=== PATIENT | male | born 1985 | race Caucasian/White ===

== ENCOUNTER 2021-11-16 07:44 | Emergency (ER) | payer SELFPAY ==
[2021-11-16 07:53] VITALS: BP 133/90; PULSE 72; RESP 18; TEMP 36.6; O2SAT 96; BMI 30.3
[2021-11-16 07:58] VITALS: BP 133/90; PULSE 63; RESP 15; O2SAT 97
--- NOTE | 2021-11-16 07:58 | XRR_ITS ---
PROCEDURE INFORMATION: Exam: XR Chest Exam date and time: 11/16/2021 7:58 AM Age: 35 years old Clinical indication: Cough and dyspnea; Additional info: Dyspnea/cough TECHNIQUE: Imaging protocol: XR of the chest. Views: 1 view. COMPARISON: No relevant prior studies available. FINDINGS: Lungs: Unremarkable. No consolidation. Pleural spaces: Unremarkable. No pleural effusion. No pneumothorax. Heart/Mediastinum: Unremarkable. No cardiomegaly. Bones/joints: Unremarkable. XR/XR chest 1V portable [id number] IMPRESSION: No acute findings.
--- NOTE | 2021-11-16 07:58 | ECG_ITS ---
[facility] Test Date: 2021-11-16 Pat Name: Boris Díaz Department: Room: Gender: Male Joint Terminal Attack Controller: : 1985 Requested By: Tray Izquierdo Order Number: [id number] Teresa Valerio MD: Cristina Miranda M.D. Measurements Intervals [place] Rate: 67 P: 48 CO: 172 QRS: 28 QRSD: 102 T: 61 QT: 376 QTc: 397 Interpretive Statements SINUS RHYTHM POSSIBLE RIGHT VENTRICULAR CONDUCTION DELAY [RSR (QR) IN V1/V2] No previous ECG available for comparison Electronically Signed On 11-17-2021 5:40:32 SUBSTATION TECHNICIAN by Cristina Miranda M.D. [email or web address].Giveterpatient's choice medical center of smith countyAdynxxfulton county health center.[employer]/store/OM/[id number]/[id number]
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
[2021-11-16 08:13] LABS: Basophils # 0.1 10^3/uL (0.0-0.1); Basophils % 0.9 %; Eosinophils # 0.2 10^3/uL (0.0-0.8); Eosinophils % 2.3 %; Hematocrit 51.6 % (42.0-52.0); Hemoglobin 16.8 g/dL (11.7-16.6); Lymphocytes # 1.6 10^3/uL (0.8-4.8); Lymphocytes % 15.9 %; Mean Corpuscular HGB Conc 32.6 g/dL (30.0-36.0); Mean Corpuscular Hemoglobin 28.5 pg (28.0-34.0); Mean Corpuscular Volume 87.6 fl (80-94); Mean Platelet Volume 9.2 fL (7.4-10.4); Monocytes # 0.8 10^3/uL (0.2-0.9); Monocytes % 7.8 %; Neutrophils # 7.46 10^3/uL (1.8-7.7); Neutrophils % 72.9 %; Nucleated Red Blood Cells % 0 %; Platelet Count 282 10^3/cmm (130-400); Red Blood Count 5.89 10^6/uL (4.1-5.3); Red Cell Distribution Width 12.3 % (12.1-15.1); White Blood Count 10.2 10^3/uL (4.0-10.0)
[2021-11-16] MEDS: lactated ringers 1,000 ML 999 ML IV ×2 (08:20→09:03)
[2021-11-16] MEDS: ketorolac 30 mg/mL INJ IVP (08:20)
[2021-11-16 08:28] VITALS: BP 133/90; PULSE 64; RESP 14; O2SAT 98
[2021-11-16 08:30] LABS: Alanine Aminotransferase 30 U/L (0-41); Albumin Level 5.1 g/dL (3.5-5.2); Alkaline Phosphatase 76 IU/L (40-130); Aspartate Amino Transferase 24 U/L (0-40); Blood Urea Nitrogen 16 mg/dL (6-20); Calcium 8.8 mg/dL (8.5-10.5); Carbon Dioxide 25 mmol/L (22-29); Chloride 99 mmol/L (98-107); Globulin 2.3 g/dL (1.3-4.6); Glomerular Filtration Rate 95.5 mL/min (90-130); Glucose 98 mg/dL (65-115); Osmolality Calculated 283 mOsm/kg (285-295); Sodium 136 mmol/L (136-145); Total Bilirubin 0.8 mg/dL (0.15-1.2); Total Protein 7.4 g/dL (6.6-8.7)
[2021-11-16 08:34] LABS: Anion Gap 16.2 (5-19); Potassium 4.2 mmol/L (3.5-5.1)
[2021-11-16 08:59] LABS: Add Urine Microscopic? NO; Charge for UA Resulting for Rev
[2021-11-16 09:14] LABS: Bilirubin Urine 1+ (Negative); Blood Urine Neg (Negative); Glucose Urine UA Norm (Normal); Ketones Urine 2+ (Negative); Leukocyte Esterase Urine Negative (Negative); Nitrate Urine Negative (Negative); Protein Urine Neg (Negative); Urine Appearance Clear (CLEAR); Urine Color Yellow (Yellow); Urobilinogen Urine Norm (Negative); pH Urine 5 (5-7)
[2021-11-16 09:44] VITALS: PULSE 77; RESP 12; O2SAT 98
[2021-11-16] MEDS: hyDROXYzine 25 mg Capsule PO (10:02)
[2021-11-16 10:38] VITALS: BP 133/90; PULSE 86; RESP 19; O2SAT 100
== END 2021-11-16 10:41 | disposition home or self-care (01) ==
PROVIDERS: Emergency Provider Family Medicine
DX: R10.13 Epigastric pain (principal); F17.210 Nicotine dependence, cigarettes, uncomplicated
CPT/HCPCS: 71045; 80053; 81003; 85025; 93005; 96361; 96374; 99284; J1885

== ENCOUNTER 2024-05-12 16:45 | Emergency (ER) | payer SELFPAY ==
[2024-05-12 16:50] VITALS: BP 145/96; PULSE 79; RESP 16; TEMP 36.5; O2SAT 97; BMI 31.6
--- NOTE | 2024-05-12 16:56 | ECG_ITS ---
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 Measurements Intervals [place] Rate: 82 P: 39 MS: 176 QRS: 18 QRSD: 87 T: 50 QT: 353 QTc: 415 Interpretive Statements SINUS RHYTHM Compared to ECG 11/16/2021 08:13:03 No significant changes Electronically Signed On 05-12-2024 20:38:15 CDT by Uday Valdovinos M.D. [email or web address] Plantãomerit health madisonAppDisco Inc.[facility].[employer]/store/OM/[id number]/ecg/[id number]
--- NOTE | 2024-05-12 17:07 | PC.NURSE ---
this nurse spoke to ARTIE Zelaya with poison control at and informed her of pts reported intake of rat poison, meth, ibuprofen and pain pills. Nathalie said to do an EKG and get baseline labs, tox labs, a magnesium level and coags. she said with pt not knowing which rat poison and pain pills he took that it could present as a variety of different things. she also stated that pts story doesn't add up with the timing of when he took the meds and the symptoms he's having . this nurse informed dr thomson of what she said. Nathalie stated she would fax some information to the hospital as well.
[2024-05-12 17:24] LABS: Basophils # 0.1 10^3/uL (0.0-0.1); Basophils % 0.5 %; Eosinophils # 0.2 10^3/uL (0.0-0.8); Eosinophils % 1.8 %; Hematocrit 49.1 % (37-53); Lymphocytes # 1.2 10^3/uL (0.8-4.8); Lymphocytes % 11.4 %; Mean Corpuscular HGB Conc 33.2 g/dL (30-55); Mean Corpuscular Hemoglobin 29.3 pg (27-33); Mean Corpuscular Volume 88.3 fl (82-101); Mean Platelet Volume 8.9 fL (7.4-10.4); Monocytes # 0.7 10^3/uL (0.2-0.9); Monocytes % 6.6 %; Neutrophils # 8.27 10^3/uL (1.8-7.7); Neutrophils % 79.3 %; Nucleated Red Blood Cells % 0 %; Platelet Count 262 10^3/cmm (157-399); Red Blood Count 5.56 10^6/uL (3.85-5.65); Red Cell Distribution Width 12.9 % (12.1-15.1); White Blood Count 10.43 10^3/uL (3.29-11.43)
[2024-05-12 17:28] LABS: Bilirubin Urine Negative (Negative); Blood Urine Negative (Negative); Glucose Urine UA Negative (Normal); Ketones Urine Trace (Negative); Leukocyte Esterase Urine Negative (Negative); Nitrate Urine Negative (Negative); Protein Urine 1+ (Negative); Specific Gravity, Urine 1.029 (1.005-1.030); Urine Appearance Clear (CLEAR); Urine Color Yellow (Yellow)
[2024-05-12 17:33] LABS: Bacteria Urine None Seen /hpf; Hyaline Casts Urine 11.97 /lpf; RBC Urine 0-2 /hpf (0-2); Squamous Epithelial Cell Urine 0-5 /hpf (0-5)
[2024-05-12 17:35] LABS: Amphetamines Screen Urine Positive (Negative); Barbiturates Screen Urine Negative (Negative); Benzodiazepines Screen Urine Negative (Negative); Cocaine Screen Urine Negative (Negative); Opiate Screen Urine Negative (Negative); PCP Screen Urine Negative (Negative); THC Screen Urine Negative (Negative)
[2024-05-12 17:42] LABS: UA Slide Review UA Slide Review Perf
[2024-05-12 17:43] LABS: Alanine Aminotransferase 31 U/L (0-41); Albumin Level 4.5 g/dL (3.5-5.2); Alkaline Phosphatase 66 U/L (40-130); Aspartate Amino Transferase 22 U/L (0-40); Blood Urea Nitrogen 12 mg/dL (6-20); Calcium 9.2 mg/dL (8.5-10.5); Carbon Dioxide 25 mmol/L (22-29); Chloride 103 mmol/L (98-107); Glomerular Filtration Rate 93.9 mL/min (90-130); Glucose 113 mg/dL (65-115); Osmolality Calculated 289 mOsm/kg (285-295); Sodium 139 mmol/L (136-145); Total Bilirubin 0.5 mg/dL (0.15-1.2); Total Protein 7.5 g/dL (6.6-8.7)
[2024-05-12 17:43] LABS: Add Urine Culture? No; Mucus Urine 3+ /hpf
[2024-05-12 17:44] LABS: INR 0.91 (0.8-1.2)
[2024-05-12 17:45] LABS: Partial Thromboplastin Time 28.1 SECONDS (23.9-36.7)
[2024-05-12 17:46] LABS: Acetaminophen < 5.0 ug/mL (10-30); Alcohol Level < 10 mg/dL (0-10); Salicylate < 0.3 mg/dL (3-10)
--- NOTE | 2024-05-12 18:02 | W.ED.OVERDOS ---
HPI - Overdose General: Chief Complaint: Overdose Stated Complaint: ate rat posion Time Seen by Provider: 05/12/24 16:57 History of Present Illness: 38-year-old man who presents emergency room with police after he had been arrested today. He had told him once he was in correction that he had taken some rat poison, pain pills, ibuprofen and some methamphetamine. He says he just wants to now. No idea how many he took or what he actually took. Currently he is vitals are stable. He has had no vomiting. No altered mental status. No focal motor deficits. Related Data Allergies Allergy/AdvReac Type Severity Reaction Status Date / Time No Known Allergies Allergy Verified 11/16/21 07:53 Review of Systems Narrative: Constitutional symptoms: Negative except as documented in HPI. Skin symptoms: Negative except as documented in HPI. Eye symptoms: Negative except as documented in HPI. ENMT symptoms: Negative except as documented in HPI. Respiratory symptoms: Negative except as documented in HPI. Cardiovascular symptoms: Negative except as documented in HPI. Gastrointestinal symptoms: Negative except as documented in HPI. Genitourinary symptoms: Negative except as documented in HPI. Musculoskeletal symptoms: Negative except as documented in HPI. Neurologic symptoms: Negative except as documented in HPI. Psychiatric symptoms: Negative except as documented in HPI. Endocrine symptoms: Negative except as documented in HPI. [facility] ED PFSH: Medical History (Updated 05/12/24 @ 19:01 by Heather Rossi MD) No significant active problems Surgical History (Updated 11/16/21 @ 08:02 by Tray Swan DO) No significant past surgical history Social History (Updated 11/16/21 @ 08:02 by Tray Swan DO) Smoking and tobacco/nicotine status: current every day tobacco/nicotine user Alcohol intake: current Substance/Drug Use: former Date of last use: Former use of marijuana and methamphetamine Physical Exam Narrative: EXAM NARRATIVE: General: Alert, no acute distress. Skin: Warm, dry. Head: Normocephalic, atraumatic. Neck: Supple, trachea midline. Eye: Extraocular movements are intact. Ears, nose, mouth and throat: mucosa moist. Cardiovascular: Regular, Normal peripheral perfusion. Respiratory: Lungs are clear to auscultation, respirations are non-labored, breath sounds are equal, Symmetrical chest wall expansion. Gastrointestinal: Soft, Nontender, Non distended Musculoskeletal: Normal ROM, no deformity. Neurological: Alert and oriented, No focal neurological deficit observed. Psychiatric: Cooperative, depressed, suicidal ideations Course Vital Signs: Vital signs: Vital Signs Temperature 97.7 F 05/12/24 16:50 Pulse Rate 70 05/12/24 18:40 Respiratory Rate 16 05/12/24 18:40 Blood Pressure 150/124 05/12/24 18:40 Pulse Oximetry 98 05/12/24 18:40 Oxygen Delivery Me thod Room Air 05/12/24 18:40 MDM - Overdose Medical Decision Making Differential diagnosis: Patient with reported depression and suicidal ideation. concerns for infection, alcohol intoxication, cardiac issues or other medical problems prior to psychiatric admission. Workup: labwork, ekg ordered to evaluate the pathologies and to clear the patient medically prior to psychiatric admission Consultation: Poison control was called immediately upon arrival. In addition to regular labs they recommend coags. These are normal. Given the timeframe that was given likely he did not take any warfarin containing rat poison. All the rest of his labs are normal other than amphetamine. Lab Review: Laboratory results were reviewed and interpreted by myself the emergency room physician. Lab review: - Medically cleared. - EKG shows no ischemic changes. - Blood alcohol level is negative, -Tylenol and salicylate levels are negative. - Drug screen is positive for methamphetamine - No signs of infection, urinalysis clear and white count is not elevated - No anemia. - BUN and creatinine are within normal limits. ?INR is normal. Assessment and plan: Depression Suicidal ideation Intentional drug ingestion -Patient is medically clear. I have talked to poison control again and given his normal vitals and normal lab work they feel he is safe to go back as well to. As far as his suicidal ideations, the correction has provisions for patients who are having suicidal thoughts. - All lab work was reviewed and interpreted personally by myself, the ER physician - Evaluation and treatment of this problem were appropriate in the emergency setting Lab Data 05/12/24 17:17 05/12/24 17:17 Laboratory Results WBC 10.43 10^3/uL (3.29-11.43) 05/12/24 17:17 RBC 5.56 10^6/uL (3.85-5.65) 05/12/24 17:17 Hgb 16.30 g/dL (11.27-16.99) 05/12/24 17:17 Hct 49.1 % (37-53) 05/12/24 17:17 MCV 88.3 fl (82-101) 05/12/24 17:17 MCH 29.3 pg (27-33) 05/12/24 17:17 MCHC 33.2 g/dL (30-55) 05/12/24 17:17 RDW 12.9 % (12.1-15.1) 05/12/24 17:17 Plt Count 262 10^3/cmm (157-399) 05/12/24 17:17 MPV 8.9 fL (7.4-10.4) 05/12/24 17:17 Neut % (Auto) 79.3 % 05/12/24 17:17 Lymph % (Auto) 11.4 % 05/12/24 17:17 [place] % (Auto) 6.6 % 05/12/24 17:17 Eos % (Auto) 1.8 % 05/12/24 17:17 Baso % (Auto) 0.5 % 05/12/24 17:17 Neut # (Auto) 8.27 10^3/uL (1.8-7.7) H 05/12/24 17:17 Lymph # (Auto) 1.2 10^3/uL (0.8-4.8) 05/12/24 17:17 [place] # (Auto) 0.7 10^3/uL (0.2-0.9) 05/12/24 17:17 Eos # (Auto) 0.2 10^3/uL (0.0-0.8) 05/12/24 17:17 Baso # (Auto) 0.1 10^3/uL (0.0-0.1) 05/12/24 17:17 Nucleated RBC % (auto) 0 % 05/12/24 17:17 Nucleated RBCs # 0.0 /100WBC 05/12/24 17:17 PT 12.50 SECONDS (12.1-14.9) 05/12/24 17:17 INR 0.91 (0.8-1.2) 05/12/24 17:17 APTT 28.1 SECONDS (23.9-36.7) 05/12/24 17:17 Sodium 139 mmol/L (136-145) 05/12/24 17:17 Potassium 4.0 mmol/L (3.5-5.1) 05/12/24 17:17 Chloride 103 mmol/L (98-107) 05/12/24 17:17 Carbon Dioxide 25 mmol/L (22-29) 05/12/24 17:17 Anion Gap 15.0 (5-19) 05/12/24 17:17 BUN 12 mg/dL (6-20) 05/12/24 17:17 Creatinine 0.9 mg/dL (0.7-1.2) 05/12/24 17:17 GFR Calculation 93.9 mL/min (90-130) 05/12/24 17:17 Glucose 113 mg/dL (65-115) 05/12/24 17:17 Calculated Osmolality 289 mOsm/kg (285-295) 05/12/24 17:17 Lactic Acid 1.0 mmol/L (0.5-2.2) 05/12/24 17:17 Calcium 9.2 mg/dL (8.5-10.5) 05/12/24 17:17 Total Bilirubin 0.5 mg/dL (0.15-1.2) 05/12/24 17:17 AST 22 U/L (0-40) 05/12/24 17:17 ALT 31 U/L (0-41) 05/12/24 17:17 Alkaline Phosphatase 66 U/L (40-130) 05/12/24 17:17 Total Protein 7.5 g/dL (6.6-8.7) 05/12/24 17:17 Albumin 4.5 g/dL (3.5-5.2) 05/12/24 17:17 Globulin 3.0 g/dL (1.3-4.6) 05/12/24 17:17 Urine Color Yellow (Yellow) 05/12/24 17:19 Urine Appearance Clear (CLEAR) 05/12/24 17:19 Urine pH 6.0 (5-7) 05/12/24 17:19 Ur Specific [place] 1.029 (1.005-1.030) 05/12/24 17:19 Urine Protein 1+ (Negative) A 05/12/24 17:19 Urine Glucose (UA) Negative (Normal) 05/12/24 17:19 Urine Ketones Trace (Negative) 05/12/24 17:19 Urine Blood Negative (Negative) 05/12/24 17:19 Urine Nitrate Negative (Negative) 05/12/24 17:19 Urine Bilirubin Negative (Negative) 05/12/24 17:19 Urine Urobilinogen 1.0 mg/dL (Negative) 05/12/24 17:19 Ur Leukocyte Esterase Negative (Negative) 05/12/24 17:19 Urine RBC 0-2 /hpf (0-2) 05/12/24 17:19 Urine WBC 6-10 /hpf (0-5) 05/12/24 17:19 Ur Squamous Epith Cells 0-5 /hpf (0-5) 05/12/24 17:19 Amorphous Sediment Not Reportable 05/12/24 17:19 Urine Bacteria None seen /hpf (NONE) 05/12/24 17:19 Hyaline Casts 11.97 /lpf 05/12/24 17:19 Urine Mucus 3+ /hpf 05/12/24 17:19 Salicylates < 0.3 mg/dL (3-10) L 05/12/24 17:17 Urine Opiates Screen Negative ng/mL (Negative) 05/12/24 17:19 Acetaminophen < 5.0 ug/mL (10-30) L 05/12/24 17:17 Ur Barbiturates Screen Negative ng/mL (Negative) 05/12/24 17:19 Ur Phencyclidine Scrn Negative ng/mL (Negative) 05/12/24 17:19 Ur Amphetamines Screen Positive ng/mL (Negative) H 05/12/24 17:19 U Benzodiazepines Scrn Negative ng/mL (Negative) 05/12/24 17:19 Urine Cocaine Screen Negative ng/mL (Negative) 05/12/24 17:19 U Marijuana (THC) Screen Negative ng/mL (Negative) 05/12/24 17:19 Ethyl Alcohol < 10 mg/dL (0-10) 05/12/24 17:17 SARS-CoV-2 Ag (Rapid) Negative (Negative) 05/12/24 17:30 No radiology studies performed this visit Discharge Plan Discharge Patient Disposition: Home Clinical Impression: Suicide attempt by multiple drug overdose Condition: Stable Discharge Orders: Discharge ED (Routine); Ordered 05/12/24 Ordered By: Heather Rossi Discharge Diet: Usual diet Discharge Activity: Increase activity as tolerated Patient Instructions: Depression (ED) Activity Restrictions/Additional Instructions: Thank you for choosing [facility] for your healthcare needs today. Please realize this is an emergency room and that we are providing you with a medical screening exam and this may not be complete and all inclusive of all the testing and or work up that you may need to determine your ailment or severity of your illness. You have been screened and evaluated and felt safe for discharge. Health conditions do change or evolve sometimes and as such it is important that you follow up with your Primary Doctor to be re checked, 3-5 days is a general good time frame for follow up. You are always welcome to return to the ED for re assessment if your symptoms are worsening or you have new concerns Coding Level of Care Code ED Assistant Prosecuting Attorney for Ariella Rojas
[2024-05-12 18:15] LABS: SARS Covid-2 Antigen Negative (Negative)
[2024-05-12 18:40] VITALS: BP 150/124; PULSE 70; RESP 16; O2SAT 98
--- NOTE | 2024-05-12 18:41 | PC.NURSE ---
officer with pt informed this nurse pt was saying he was having a panic attack. this nurse checked on pt who was restless and stated he couldn't breathe and his stomach hurt. pt O2 sats 98-100% on room air at this time. pt stated he wanted something to drink. this nurse informed provider, provider said pt could have water and ordered meds. pt was given a cup of water and laid back in bed. this nurse went to start an IV on pt to administer ordered meds and pt refused. pt stated i don't want meds, i just want to . let me in this bed. this nurse informed provider.
[2024-05-12 19:15] VITALS: BP 161/90; PULSE 88; RESP 16; TEMP 36.5; O2SAT 98
== END 2024-05-12 19:16 | disposition home or self-care (01) ==
PROVIDERS: Emergency Provider Emergency Medicine
DX: T40.2X2A Poisoning by other opioids, intentional self-harm, initial encounter (principal); T39.312A Poisoning by propionic acid derivatives, intentional self-harm, initial encounter; T43.622A Poisoning by amphetamines, intentional self-harm, initial encounter; Z72.0 Tobacco use; Z11.52 Encounter for screening for COVID-19
CPT/HCPCS: 36415; 80053; 80306; 80307; 81001; 83605; 85025; 85610; 85730; 87426; 93005; 99284

== ENCOUNTER 2025-01-14 00:46 | Emergency (ER) | payer SELFPAY ==
[2025-01-14] VITALS (7 sets, daily range): BP systolic 121–133; BP diastolic 64–98; PULSE 57–83; RESP 15–20; TEMP 36.6; O2SAT 92–96; BMI 31.1
--- NOTE | 2025-01-14 00:42 | XRR_ITS ---
PROCEDURE INFORMATION: Exam: XR Chest Exam date and time: 01/14/2025 12:44 AM Age: 39 years old Clinical indication: Left-sided; C/O left sided chest pain TECHNIQUE: Imaging protocol: Radiologic exam of the chest. Views: 1 view. COMPARISON: CR XR chest 1V portable [id number] 11/16/2021 8:01 AM FINDINGS: Lungs: Unremarkable. No consolidation. Pleural spaces: Unremarkable. No pleural effusion. No pneumothorax. Heart/Mediastinum: Unremarkable. No cardiomegaly. Bones/joints: Unremarkable. XR/XR chest 1V portable [id number] IMPRESSION: No visualized acute cardiopulmonary process.
--- NOTE | 2025-01-14 00:43 | ECG_ITS ---
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
[2025-01-14 00:56] LABS: Basophils # 0.1 10^3/uL (0.0-0.1); Basophils % 0.5 %; Eosinophils # 0.2 10^3/uL (0.0-0.8); Eosinophils % 1.6 %; Hematocrit 48.7 % (37-53); Lymphocytes # 2.1 10^3/uL (0.8-4.8); Lymphocytes % 16.8 %; Mean Corpuscular HGB Conc 32.6 g/dL (30-55); Mean Corpuscular Volume 88.9 fl (82-101); Monocytes # 0.9 10^3/uL (0.2-0.9); Monocytes % 7.7 %; Neutrophils # 8.91 10^3/uL (1.8-7.7); Neutrophils % 73.1 %; Nucleated Red Blood Cells % 0 %; Platelet Count 295 10^3/cmm (157-399); Red Blood Count 5.48 10^6/uL (3.85-5.65)
[2025-01-14 01:12] LABS: Troponin(5th) Baseline 16 ng/L (0-15)
[2025-01-14 01:13] LABS: Alanine Aminotransferase 25 U/L (0-41); Albumin Level 4.6 g/dL (3.5-5.2); Alkaline Phosphatase 76 U/L (40-130); Anion Gap 15.4 (5-19); Aspartate Amino Transferase 20 U/L (0-40); Blood Urea Nitrogen 10 mg/dL (6-20); Calcium 9.3 mg/dL (8.5-10.5); Carbon Dioxide 26 mmol/L (22-29); Chloride 101 mmol/L (98-107); Creatinine Clr Calc Pharmacy 111.4778; Globulin 2.9 g/dL (1.3-4.6); Glomerular Filtration Rate 74.1 mL/min (90-130); Glucose 104 mg/dL (65-115); Osmolality Calculated 285 mOsm/kg (285-295); Potassium 4.4 mmol/L (3.5-5.1); Sodium 138 mmol/L (136-145); Total Bilirubin 0.6 mg/dL (0.15-1.2); Total Protein 7.5 g/dL (6.6-8.7)
[2025-01-14] MEDS: sodium chloride 0.9% 1,000 ML 999 ML IV (01:17)
[2025-01-14] MEDS: ketorolac 30 mg/mL INJ 15 MG IVP (01:17)
--- NOTE | 2025-01-14 01:32 | ED_ITS ---
HPI - Chest Pain 2 General: Chief Complaint: Chest Pain Stated Complaint: cp History of Present Illness: Patient is well-appearing 39-year-old male transported from prison seen for chest pain. He describes the pain as sharp and located to the left anterior chest and also to spot on the right anterior chest in the anterior axillary line. He states the pain is worse with deep inspiration and better with rest. Pain started roughly 1 hour after arriving at prison and has been persistent for well over 6 hours. He has not had anything for the pain. He states that he has had similar pain in the past. He has no personal history of cardiac issues. He denies recent sickness, fever, cough, and has no other acute complaints. Related Data Allergies Allergy/AdvReac Type Severity Reaction Status Date / Time No Known Allergies Allergy Verified 11/16/21 07:53 [facility] ED 2 PFS: Medical History (Updated 01/14/25 @ 01:32 by Dylan Kellogg MD) No significant active problems Surgical History (Updated 11/16/21 @ 08:02 by Tray Swan DO) No significant past surgical history Social History (Updated 11/16/21 @ 08:02 by Tray Swan DO) Smoking and tobacco/nicotine status: current every day tobacco/nicotine user Alcohol intake: current Substance/Drug Use: former Date of last use: Former use of marijuana and methamphetamine Physical Exam 2 Const: COMMON NORMALS: no acute distress, patient oriented x3 and alert HENMT: COMMON NORMALS: normocephalic and atraumatic HEAD & SCALP: n ormocephalic and atraumatic Eye: COMMON NORMALS: Equal, round and reactive pupils present, EOMs intact bilaterally and no scleral icterus PUPIL: Yes Equal, round and reactive pupils present Chest: OTHER: Chest pain is reproducible with deep inspiration and palpation of the left anterior chest wall as well as on the right anterior chest wall in the anterior axillary line overlying rib 7. No obvious deformity, swelling, redness, or bruising of the area. Resp: COMMON NORMALS: normal respiratory effort and No retractions Cardio: COMMON NORMALS: regular rate, regular rhythm and No murmurs present (Cardio) RATE: regular rate RHYTHM: regular rhythm GI: COMMON NORMALS: Normal to inspection, nondistended, normoactive bowel sounds present, Soft to palpation and non-tender PALPATION: Yes Soft to palpation Neuro: COMMON NORMALS: patient oriented x3 SENSORIUM/ORIENTATION: Yes alert Skin: COMMON NORMALS: no rashes or lesions noted GENERAL SKIN EXAM: no rashes or lesions noted Course 2 Vital Signs: Vital signs: Vital Signs Temperature 97.9 F 01/14/25 00:42 Pulse Rate 66 01/14/25 01:03 Respiratory Rate 20 H 01/14/25 01:03 Blood Pressure 133/98 01/14/25 01:03 Pulse Oximetry 95 01/14/25 01:03 Oxygen Delivery Me thod Room Air 01/14/25 00:42 [facility] - Chest Pain Medical Decision Making In summary, patient is a well-appearing 3-year-old male seen for chest pain. Pain pattern is atypical for ACS. Chest x-ray, EKG, troponin are all stable. Remainder of workup is noncontributory. I do not suspect ACS, PE, pneumonia, or any other emergent process warranting further, this time. He will be discharged back to prison in stable condition. Lab Data 01/14/25 00:48 01/14/25 00:48 Radiology Impressions Chest X-Ray 01/14/25 00:42 IMPRESSION: No visualized acute cardiopulmonary process. Laboratory Results WBC 12.20 10^3/uL (3.29-11.43) H 01/14/25 00:48 RBC 5.48 10^6/uL (3.85-5.65) 01/14/25 00:48 Hgb 15.90 g/dL (11.27-16.99) 01/14/25 00:48 Hct 48.7 % (37-53) 01/14/25 00:48 MCV 88.9 fl (82-101) 01/14/25 00:48 MCH 29.0 pg (27-33) 01/14/25 00:48 MCHC 32.6 g/dL (30-55) 01/14/25 00:48 RDW 13.0 % (12.1-15.1) 01/14/25 00:48 Plt Count 295 10^3/cmm (157-399) 01/14/25 00:48 MPV 9.0 fL (7.4-10.4) 01/14/25 00:48 Neut % (Auto) 73.1 % 01/14/25 00:48 Lymph % (Auto) 16.8 % 01/14/25 00:48 [place] % (Auto) 7.7 % 01/14/25 00:48 Eos % (Auto) 1.6 % 01/14/25 00:48 Baso % (Auto) 0.5 % 01/14/25 00:48 Neut # (Auto) 8.91 10^3/uL (1.8-7.7) H 01/14/25 00:48 Lymph # (Auto) 2.1 10^3/uL (0.8-4.8) 01/14/25 00:48 [place] # (Auto) 0.9 10^3/uL (0.2-0.9) 01/14/25 00:48 Eos # (Auto) 0.2 10^3/uL (0.0-0.8) 01/14/25 00:48 Baso # (Auto) 0.1 10^3/uL (0.0-0.1) 01/14/25 00:48 Nucleated RBC % (auto) 0 % 01/14/25 00:48 Nucleated RBCs # 0.0 /100WBC 01/14/25 00:48 Sodium 138 mmol/L (136-145) 01/14/25 00:48 Potassium 4.4 mmol/L (3.5-5.1) 01/14/25 00:48 Chloride 101 mmol/L (98-107) 01/14/25 00:48 Carbon Dioxide 26 mmol/L (22-29) 01/14/25 00:48 Anion Gap 15.4 (5-19) 01/14/25 00:48 BUN 10 mg/dL (6-20) 01/14/25 00:48 Creatinine 1.1 mg/dL (0.7-1.2) 01/14/25 00:48 GFR Calculation 74.1 mL/min (90-130) L 01/14/25 00:48 Glucose 104 mg/dL (65-115) 01/14/25 00:48 Calculated Osmolality 285 mOsm/kg (285-295) 01/14/25 00:48 Calcium 9.3 mg/dL (8.5-10.5) 01/14/25 00:48 Total Bilirubin 0.6 mg/dL (0.15-1.2) 01/14/25 00:48 AST 20 U/L (0-40) 01/14/25 00:48 ALT 25 U/L (0-41) 01/14/25 00:48 Alkaline Phosphatase 76 U/L (40-130) 01/14/25 00:48 Troponin T Baseline 16 ng/L (0-15) H 01/14/25 00:48 Total Protein 7.5 g/dL (6.6-8.7) 01/14/25 00:48 Albumin 4.6 g/dL (3.5-5.2) 01/14/25 00:48 Globulin 2.9 g/dL (1.3-4.6) 01/14/25 00:48 All radiology interpretation(s) finalized by discharge EKG Data EKG 1: Interpretation: Time?42?sinus rhythm, rate of 80, no ST segment elevation or depression, no T wave inversion, intervals within normal limits. QTc = 396 Discharge Plan Discharge Patient Disposition: Home Clinical Impression: Chest pain in adult Condition: Stable Discharge Orders: Discharge ED (Routine); Ordered 01/14/25 Ordered By: Dylan Kellogg Discharge Diet: Usual diet Discharge Activity: Resume usual activity Patient Instructions: Chest Pain - Noncardiac Activity Restrictions/Additional Instructions: Your EKG, chest x-ray, and blood work are all reassuring with no evidence of heart attack or other emergency requiring hospitalization or further workup. Please take ibuprofen as needed for pain and follow-up with your primary doctor generally with Print Language: Cypriot Coding Level of Care Code ED Cardiovascular Lab Director for Ariella Rojas
== END 2025-01-14 02:10 | disposition home or self-care (01) ==
PROVIDERS: Emergency Provider Student in an Organized Health Care Education/Training Program
DX: R07.9 Chest pain, unspecified (principal); Z72.0 Tobacco use
CPT/HCPCS: 71045; 80053; 84484; 85025; 93005; 96360; 99285; J1885; J7030

== ENCOUNTER 2025-05-05 17:42 | Emergency (ER) | payer SELFPAY ==
[2025-05-05 17:50] VITALS: BP 122/90; PULSE 73; TEMP 37.1; O2SAT 96
--- NOTE | 2025-05-05 17:56 | USR_ITS ---
PROCEDURE INFORMATION: Exam: US Scrotum Exam date and time: 05/05/2025 6:30 PM Age: 39 years old Clinical indication: Scrotum pain; Patient is a prisoner with police escort. He is a poor historian, does not answer how long he has noticed the left scrotal mass; Additional info: Mass on left testes TECHNIQUE: Imaging protocol: Real-time ultrasound of the scrotum and contents with color Doppler and image documentation. COMPARISON: l spine FINDINGS: Right testicle: The right testicle measures 4.1 x 2.1 x 2.9 cm. There is vascular flow. Left testicle: The left testicle measures 4.4 x 2.3 x 2.5 cm. There is vascular flow. 3.1 x 2.3 x 2.1 cm left extratesticular mass which contains some peripheral vascularity, Epididymides: Right epididymis measures 3.1 x 1.6 x 1.2 cm in the left epididymis measures 3.4 x 1.2 x 1.0 cm. There is a 0.4 x 0.4 x 0.4 cm right epididymal cyst. Scrotum/soft tissues: There is a left hydrocele noted. This measures 2.1 x 1.6 x 2.8 cm. Left varicocele noted measuring 3.3 x 1.0 x 1.1 cm. US/US scrotum [id number] IMPRESSION: 1. 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 2. Left hydrocele. 3. 0.4 cm right epididymal cyst. 4. No evidence of torsion.
--- NOTE | 2025-05-05 17:57 | ED_ITS ---
HPI - Male Genitourinary 2 General: Chief complaint: Urogenital-Male Stated complaint: testicular pain Time Seen by Provider: 05/05/25 17:45 History of Present Illness: Patient is a 39-year-old gentleman without medical history, incarcerated, comes to ED with dark urine and mass on left testes. This has been worsening over the last few days. He has been incarcerated a week and a half. No new sexual partners. No fevers, no chills. Denies dysuria, hematuria, oliguria. States that the pain is in his left testes, there is a mass on his left testes, and it radiates down both legs. Associated symptoms: Deny dysuria, nausea or vomiting Related Data Previous Rx's ?Medication ?Instructions ?Recorded ibuprofen 400 mg tablet 400 mg PO Q6H PRN pain #30 t abs 05/05/25 Allergies Allergy/AdvReac Type Severity Reaction Status Date / Time No Known Allergies Allergy Verified 05/05/25 17:53 Review of Systems 2 General: Reports: 10 or more systems reviewed and unremarkable except in HPI and below Const: Denies: fever(s) or chills Eyes: Denies: change in vision or blurry vision ENMT: Denies: throat pain or mouth pain Card: Denies: chest pain or palpitations Resp: Denies: dyspnea or non-productive cough GI: Denies: abdominal pain, nausea, vomiting or change in bowel habits : Reports: testicular pain and scrotal swelling; Denies: flank pain, difficulty urinating, dysuria, change in urine stream or oliguria Musc: Denies: neck pain, back pain or extremity pain Skin/Breast: Denies: rash or pruritus Neuro: Denies: headache(s) or numbness in extremities Psych: Denies: anxiety or depression Endo: Denies: polyuria or polydipsia Jaime/Lymph: Denies: easy bruising or easy bleeding All/Imm: Denies: urticaria or tongue swelling PFSH ED 2 PFSH: Medical History (Updated 05/05/25 @ 19:40 by NYASIA Rahman) No significant active problems Surgical History (Updated 11/16/21 @ 08:02 by Tray Swan DO) No significant past surgical history Social History (Updated 11/16/21 @ 08:02 by Tray L Horstman, DO) Smoking and tobacco/nicotine status: current every day tobacco/nicotine user Alcohol intake: current Substance/Drug Use: former Date of last use: Former use of marijuana and methamphetamine Physical Exam 2 Const: COMMON NORMALS: no acute distress, average body habitus, patient oriented x3, no limitations, healthy appearing, alert and well nourished HENMT: COMMON NORMALS: normocephalic, atraumatic and hearing grossly normal bilaterally HEAD & SCALP: normocephalic and atraumatic Eye: COMMON NORMALS: Equal, round and reactive pupils present, EOMs intact bilaterally and conjunctivae normal CONJUNCTIVA: Yes conjunctivae normal P UPIL: Yes Equal, round and reactive pupils present Lymph: LYMPHATIC: no lymphadenopathy noted Chest: COMMONS NORMALS: normal inspection of the chest and normal palpation of entire chest wall Resp: COMMON NORMALS: normal respiratory effort, No retractions and clear to auscultation bilaterally AUSCULTATION: clear to auscultation bilaterally Cardio: COMMON NORMALS: regular rate and regular rhythm RATE: regular rate RHYTHM: regular rhythm GI: COMMON NORMALS: Normal to inspection, nondistended, normoactive bowel sounds present, Soft to palpation, non-tender and No hepatosplenomegaly present PALPATION: Yes Soft to palpation and Yes No hepatosplenomegaly present : COMMON NORMALS: Yes no CVA tenderness BLADDER/KIDNEY EXAM: Yes no CVA tenderness MALE GROIN/PERINEUM EXAM: No ecchymosis, No edema, No inguinal lymphadenopathy and No lacerations PENIS: normal penis and circumcised S CROTUM: Yes testes descended bilaterally, Yes Scrotal tenderness present, Yes scrotal swelling Scrotal swelling laterality: left Scrotal swelling consistent with: spermatocele (left) and Yes scrotal mass Scrotal mass laterality: left mobile, tender and cystic; not warm GENITAL IMAGES (MALE): 1. scrotal mass Back/Pelvis: COMMON NORMALS: no CVA tenderness Extremity: COMMON NORMALS: normal to inspection, full ROM and capillary refill normal GENERAL: Yes normal exam except as noted Neuro: COMMON NORMALS: patient oriented x3 SENSORIUM/ORIENTATION: Yes alert Course 2 Reevaluation(s): Reevaluation #1: Patient states improved after Toradol and Norflex Vital Signs: Vital signs: Vital Signs Temperature 98.8 F 05/05/25 17:50 Pulse Rate 73 05/05/25 17:50 Respiratory Rate 18 08/18/25 19:04 Blood Pressure 108/66 05/05/25 18:36 Pulse Oximetry 98 05/05/25 19:04 Oxygen Delivery Me thod Room Air 05/05/25 19:04 MDM - Male Medical Decision Making Patient is a 39-year-old gentleman with mass on left testicle, over the course of this week. No new sexual partners. Chlamydia, gonorrhea is pending, however low risk per patient without any new sexual partners. The mass in general felt more cystic in nature. 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 Patient will then need referral to urology. Discussed with patient. Case management referral has been made. Patient has agreed for them to call the detention for his follow-up appointment so this can be coordinated, I assume with [facility], however will defer to case management. Lab Data 05/05/25 18:13 05/05/25 18:13 Radiology Impressions Scrotum Ultrasound 05/05/25 17:56 IMPRESSION: 1. 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 2. Left hydrocele. 3. 0.4 cm right epididymal cyst. 4. No evidence of torsion. Laboratory Results WBC 9.82 10^3/uL (3.29-11.43) 05/05/25 18:13 RBC 5.34 10^6/uL (3.85-5.65) 05/05/25 18:13 Hgb 15.30 g/dL (11.27-16.99) 05/05/25 18:13 Hct 46.6 % (37-53) 05/05/25 18:13 MCV 87.3 fl (82-101) 05/05/25 18:13 MCH 28.7 pg (27-33) 05/05/25 18:13 MCHC 32.8 g/dL (30-55) 05/05/25 18:13 RDW 12.8 % (12.1-15.1) 05/05/25 18:13 Plt Count 274 10^3/cmm (157-399) 05/05/25 18:13 MPV 9.3 fL (7.4-10.4) 05/05/25 18:13 Neut % (Auto) 66.3 % 05/05/25 18:13 Lymph % (Auto) 20.1 % 05/05/25 18:13 [place] % (Auto) 7.3 % 05/05/25 18:13 Eos % (Auto) 5.1 % 05/05/25 18:13 Baso % (Auto) 0.9 % 05/05/25 18:13 Neut # (Auto) 6.51 10^3/uL (1.8-7.7) 05/05/25 18:13 Lymph # (Auto) 2.0 10^3/uL (0.8-4.8) 05/05/25 18:13 [place] # (Auto) 0.7 10^3/uL (0.2-0.9) 05/05/25 18:13 Eos # (Auto) 0.5 10^3/uL (0.0-0.8) 05/05/25 18:13 Baso # (Auto) 0.1 10^3/uL (0.0-0.1) 05/05/25 18:13 Nucleated RBC % (auto) 0 % 05/05/25 18:13 Nucleated RBCs # 0.0 /100WBC 05/05/25 18:13 Sodium 137 mmol/L (136-145) 05/05/25 18:13 Potassium 4.0 mmol/L (3.5-5.1) 05/05/25 18:13 Chloride 100 mmol/L (98-107) 05/05/25 18:13 Carbon Dioxide 26 mmol/L (22-29) 05/05/25 18:13 Anion Gap 15.0 (5-19) 05/05/25 18:13 BUN 7 mg/dL (6-20) 05/05/25 18:13 Creatinine 1.0 mg/dL (0.7-1.2) 05/05/25 18:13 GFR Calculation 82.8 mL/min (90-130) L 05/05/25 18:13 Glucose 88 mg/dL (65-115) 05/05/25 18:13 Calculated Osmolality 281 mOsm/kg (285-295) L 05/05/25 18:13 Calcium 9.0 mg/dL (8.5-10.5) 05/05/25 18:13 Total Bilirubin 0.4 mg/dL (0.15-1.2) 05/05/25 18:13 AST 18 U/L (0-40) 05/05/25 18:13 ALT 21 U/L (0-41) 05/05/25 18:13 Alkaline Phosphatase 60 U/L (40-130) 05/05/25 18:13 Total Protein 7.3 g/dL (6.6-8.7) 05/05/25 18:13 Albumin 4.4 g/dL (3.5-5.2) 05/05/25 18:13 Globulin 2.9 g/dL (1.3-4.6) 05/05/25 18:13 Urine Color Yellow (Yellow) 05/05/25 18:30 Urine Appearance Clear (CLEAR) 05/05/25 18:30 Urine pH 7.0 (5-7) 05/05/25 18:30 Ur Specific [place] 1.021 (1.005-1.030) 05/05/25 18:30 Urine Protein Negative (Negative) 05/05/25 18:30 Urine Glucose (UA) Negative (Normal) 05/05/25 18:30 Urine Ketones Trace (Negative) 05/05/25 18:30 Urine Blood Negative (Negative) 05/05/25 18:30 Urine Nitrate Negative (Negative) 05/05/25 18:30 Urine Bilirubin Negative (Negative) 05/05/25 18:30 Urine Urobilinogen 1.0 mg/dL (Negative) 05/05/25 18:30 Ur Leukocyte Esterase Negative (Negative) 05/05/25 18:30 Amorphous Sediment Not Reportable 05/05/25 18:30 All radiology interpretation(s) finalized by discharge Discharge Plan Discharge Patient Disposition: Home Clinical Impression: Adenomatoid tumor, Left hydrocele Condition: Stable Prescriptions: New ibuprofen 400 mg tablet 400 mg PO Q6H PRN (Reason: pain) Qty: 30 0RF Discharge Orders: Discharge ED (Routine); Ordered 05/05/25 Ordered By: Susan Lemos Discharge Diet: Usual diet Discharge Activity: Resume usual activity Patient Instructions: Scrotal Pain (ED), Patient Portal & Darin Instructions Activity Restrictions/Additional Instructions: You will need to follow-up with urology. I have called case management for a referral. Take ibuprofen as needed for pain. Prescription has been sent to [facility] pharmacy locally. You may utilize a jockstrap for support if it helps for pain No other findings were noted. You may follow-up with primary care Return to ED if worsening pain, fever, pain with urination Print Language: Estonian Coding Level of Care Code ED Women'S Swim Coach for Ariella Rojas
[2025-05-05 18:36] VITALS: BP 108/66
[2025-05-05 18:40] LABS: Add Urine Microscopic? NO
[2025-05-05 18:40] LABS: Hematocrit 46.6 % (37-53); Hemoglobin 15.30 g/dL (11.27-16.99); Mean Corpuscular HGB Conc 32.8 g/dL (30-55); Mean Corpuscular Hemoglobin 28.7 pg (27-33); Mean Corpuscular Volume 87.3 fl (82-101); Nucleated Red Blood Cells % 0 %; Platelet Count 274 10^3/cmm (157-399); Red Blood Count 5.34 10^6/uL (3.85-5.65); White Blood Count 9.82 10^3/uL (3.29-11.43)
[2025-05-05 18:41] LABS: Glucose Urine UA Negative (Normal); Nitrate Urine Negative (Negative); Specific Gravity, Urine 1.021 (1.005-1.030)
[2025-05-05 18:46] LABS: Charge for UA Resulting for Rev
[2025-05-05 18:58] LABS: Alanine Aminotransferase 21 U/L (0-41); Albumin Level 4.4 g/dL (3.5-5.2); Alkaline Phosphatase 60 U/L (40-130); Anion Gap 15.0 (5-19); Aspartate Amino Transferase 18 U/L (0-40); Blood Urea Nitrogen 7 mg/dL (6-20); Calcium 9.0 mg/dL (8.5-10.5); Carbon Dioxide 26 mmol/L (22-29); Chloride 100 mmol/L (98-107); Creatinine Clr Calc Pharmacy 122.6256; Globulin 2.9 g/dL (1.3-4.6); Glucose 88 mg/dL (65-115); Osmolality Calculated 281 mOsm/kg (285-295); Potassium 4.0 mmol/L (3.5-5.1); Sodium 137 mmol/L (136-145); Total Protein 7.3 g/dL (6.6-8.7)
[2025-05-05 19:04] VITALS: RESP 18; O2SAT 98
[2025-05-05] MEDS: orphenadrine 30 mg/mL Inj 2 mL 60 MG IM (19:29)
[2025-05-05 20:07] VITALS: BP 112/70; PULSE 75; RESP 18; O2SAT 99
[2025-05-05 20:21] LABS: Neisseria Gonorrhea NOT DETECTED (Negative)
--- NOTE | 2025-05-07 10:53 | DCPLANNER ---
Referral sent to [facility] urolog
== END 2025-05-05 20:11 | disposition home or self-care (01) ==
PROVIDERS: Emergency Provider Physician Assistant
DX: D29.22 Benign neoplasm of left testis (principal); N43.3 Hydrocele, unspecified; Z72.0 Tobacco use
CPT/HCPCS: 36415; 76870; 80053; 81003; 85025; 87491; 87591; 96372; 99284; J1885; J2360

== ENCOUNTER 2025-07-15 16:37 | Emergency (ER) | payer SELFPAY ==
[2025-07-15 16:44] VITALS: BP 125/95; PULSE 74; RESP 14; TEMP 36.6; O2SAT 95; BMI 30.3
--- NOTE | 2025-07-15 16:51 | USR_ITS ---
PROCEDURE INFORMATION: Exam: US Scrotum Exam date and time: 07/15/2025 5:08 PM Age: 39 years old Clinical indication: Condition or disease; Mass, lump, or swelling; Left; Additional info: L mass-enlarging TECHNIQUE: Imaging protocol: Real-time ultrasound of the scrotum and contents with color Doppler and image documentation. COMPARISON: US scrotum [id number] 05/05/2025 6:30 PM FINDINGS: Right testicle: 4.1 x 3.4 x 2.5 cm. No intratesticular mass. Normal color Doppler and arterial waveforms. No torsion. Left testicle: 4.2 x 2.3 x 2.5 cm. No intratesticular mass. Normal color Doppler and arterial waveforms. No torsion. Epididymides: No evidence of epididymitis. Scrotum/soft tissues: Re-demonstration are extratesticular mass in the left hemiscrotum measuring approximately 2.5 x 2.4 x 2.7 cm, minimal interval change in appearance to previous examination allowing for differences in technique. No internal vascularity is apparent. US/US scrotum [id number] IMPRESSION: 1. No evidence of testicular torsion, orchitis, or epididymitis. 2. Redemonstration of left hemiscrotum nonvascular extratesticular mass measuring 2.5 x 2.4 x 2.7 cm, minimal interval change.
--- NOTE | 2025-07-15 16:52 | ED_ITS ---
HPI - Male Genitourinary 2 General: Chief complaint: Urogenital-Male Stated complaint: urinated blood Time Seen by Provider: 07/15/25 16:46 Source: patient Mode of arrival: ambulatory Limitations: no limitations History of Present Illness: Patient is a 39-year-old male presents to ED today incarcerated/in police custody here for complaints of an enlarging left testicular mass and hematuria. He states he has noticed hematuria over the past several days. He was seen here back in April and diagnosed with a left testicular mass. He did follow-up with urology at [facility] in [place] but states there was a mixup with payments so was never actually seen. There is no concern for STD. He is not having any penile discharge. Denies flank pain or fevers. MD Complaint: testicle pain, testicle swelling and other (hematuria) Onset (ago): month(s) (L testicular mass x months) Duration: constant Location: left testicle Radiation: left testicle Severity: moderate Relieving factors: none Exacerbating factors: none Associated symptoms: Reports hematuria; Deny dysuria, nausea or vomiting Related Data Previous Rx's ?Medication ?Instructions ?Recorded ibuprofen 400 mg tablet 400 mg PO Q6H PRN pain #30 t abs 05/05/25 Allergies Allergy/AdvReac Type Severity Reaction Status Date / Time No Known Allergies Allergy Verified 05/05/25 17:53 Review of Systems 2 Const: Denies: fever(s), chills, body aches, fatigue or malaise Card: Denies: chest pain Resp: Denies: dyspnea GI: Denies: nausea, vomiting, diarrhea or change in bowel habits : Reports: hematuria and testicular mass; Denies: flank pain, difficulty urinating, dysuria, urinary frequency, urinary urgency, urinary dribbling, genital lesions or penile discharge Musc: Denies: neck pain, back pain, extremity pain or joint swelling Skin/Breast: Denies: rash Neuro: Denies: headache(s), numbness in extremities, weakness in extremities, sensory changes or dizziness PFSH ED 2 PFSH: Medical History No significant active problems Surgical History No significant past surgical history Social History (Reviewed 07/15/25 @ 16:55 by RYLAN Sanchez Smoking and tobacco/nicotine status: current every day tobacco/nicotine user Alcohol intake: current Substance/Drug Use: former Date of last use: Former use of marijuana and methamphetamine Physical Exam 2 Const: COMMON NORMALS: no acute distress, average body habitus, patient oriented x3, no limitations, healthy appearing, alert and well nourished G ENERAL APPEARANCE: cooperative ORIENTATION/CONSCIOUSNESS: Yes awake, Yes oriented to person, Yes oriented to place and Yes oriented to time Resp: COMMON NORMALS: normal respiratory effort and clear to auscultation bilaterally AUSCULTATION: clear to auscultation bilaterally Cardio: COMMON NORMALS: regular rate and regular rhythm RATE: regular rate RHYTHM: regular rhythm GI: COMMON NORMALS: Normal to inspection, nondistended, normoactive bowel sounds present, Soft to palpation, non-tender, No hepatosplenomegaly present and no masses INSPECTION: Yes normal to inspection PALPATION: Yes Soft to palpation and Yes No hepatosplenomegaly present : COMMON NORMALS: Yes no CVA tenderness BLADDER/KIDNEY EXAM: Yes no CVA tenderness PENIS: normal penis and circumcised MEATUS: meatus normal S CROTUM: Yes testes descended bilaterally, Yes Scrotal tenderness present, No erythematous, No ecchymosis and Yes scrotal mass Scrotal mass laterality: left TESTES: Yes testicular tenderness and Yes testicular mass Testicular mass laterality: left OTHER: urine sample provided does not appear to have any blood in it-dark yellow Back/Pelvis: COMMON NORMALS: no CVA tenderness Extremity: GENERAL: Yes normal exam except as noted Neuro: COMMON NORMALS: patient oriented x3 SENSORIUM/ORIENTATION: Yes alert, Yes oriented to person, Yes oriented to place and Yes oriented to time Course 2 Vital Signs: Vital signs: Vital Signs Temperature 97.8 F 07/15/25 16:44 Pulse Rate 72 07/15/25 17:32 Respiratory Rate 14 07/15/25 16:44 Blood Pressure 151/86 07/15/25 17:32 Pulse Oximetry 97 07/15/25 17:32 MDM - Male Medical Decision Making Patient appears in no acute distress. Vital signs are stable. He is not having any flank pain or fevers. His blood work overall is unremarkable. Kidney functions are normal. UA appears dark and concentrated insistent with dehydration. No hematuria present. US ultrasound showing redemonstration of an extratesticular mass-this does not appear to have grown much since last US. He still needs to follow up with urology for this. Medical Records I reviewed the patient's medical records. Lab Data I reviewed the patient's lab results. 07/15/25 17:01 07/15/25 17:01 Radiology Impressions Scrotum Ultrasound 07/15/25 16:51 IMPRESSION: 1. No evidence of testicular torsion, orchitis, or epididymitis. 2. Redemonstration of left hemiscrotum nonvascular extratesticular mass measuring 2.5 x 2.4 x 2.7 cm, minimal interval change. Laboratory Results WBC 7.38 10^3/uL (3.29-11.43) 07/15/25 17:01 RBC 4.91 10^6/uL (3.85-5.65) 07/15/25 17:01 Hgb 13.90 g/dL (11.27-16.99) 07/15/25 17:01 Hct 41.6 % (37-53) 07/15/25 17:01 MCV 84.7 fl (82-101) 07/15/25 17:01 MCH 28.3 pg (27-33) 07/15/25 17:01 MCHC 33.4 g/dL (30-55) 07/15/25 17:01 RDW 12.1 % (12.1-15.1) 07/15/25 17:01 Plt Count 327 10^3/cmm (157-399) 07/15/25 17:01 MPV 9.4 fL (7.4-10.4) 07/15/25 17:01 Neut % (Auto) 65.2 % 07/15/25 17:01 Lymph % (Auto) 22.1 % 07/15/25 17:01 Glenn % (Auto) 9.1 % 07/15/25 17:01 Eos % (Auto) 2.3 % 07/15/25 17:01 Baso % (Auto) 0.9 % 07/15/25 17:01 Neut # (Auto) 4.81 10^3/uL (1.8-7.7) 07/15/25 17:01 Lymph # (Auto) 1.6 10^3/uL (0.8-4.8) 07/15/25 17:01 Glenn # (Auto) 0.7 10^3/uL (0.2-0.9) 07/15/25 17:01 Eos # (Auto) 0.2 10^3/uL (0.0-0.8) 07/15/25 17:01 Baso # (Auto) 0.1 10^3/uL (0.0-0.1) 07/15/25 17:01 Nucleated RBC % (auto) 0 % 07/15/25 17:01 Nucleated RBCs # 0.0 /100WBC 07/15/25 17:01 Sodium 142 mmol/L (136-145) 07/15/25 17:01 Potassium 3.7 mmol/L (3.5-5.1) 07/15/25 17:01 Chloride 105 mmol/L (98-107) 07/15/25 17:01 Carbon Dioxide 24 mmol/L (22-29) 07/15/25 17:01 Anion Gap 16.7 (5-19) 07/15/25 17:01 BUN 13 mg/dL (6-20) 07/15/25 17:01 Creatinine 0.8 mg/dL (0.7-1.2) 07/15/25 17:01 GFR Calculation 107.1 mL/min (90-130) 07/15/25 17:01 Glucose 96 mg/dL (65-115) 07/15/25 17:01 Calculated Osmolality 294 mOsm/kg (285-295) 07/15/25 17:01 Calcium 8.8 mg/dL (8.5-10.5) 07/15/25 17:01 Total Bilirubin 0.4 mg/dL (0.15-1.2) 07/15/25 17:01 AST 28 U/L (0-40) 07/15/25 17:01 ALT 24 U/L (0-41) 07/15/25 17:01 Alkaline Phosphatase 57 U/L (40-130) 07/15/25 17:01 Total Protein 7.7 g/dL (6.6-8.7) 07/15/25 17:01 Albumin 4.5 g/dL (3.5-5.2) 07/15/25 17:01 Globulin 3.2 g/dL (1.3-4.6) 07/15/25 17:01 Urine Color Dark yellow (Yellow) A 07/15/25 16:58 Urine Appearance Clear (CLEAR) 07/15/25 16:58 Urine pH 6.5 (5-7) 07/15/25 16:58 Ur Specific [facility] 1.037 (1.005-1.030) H 07/15/25 16:58 Urine Protein Trace (Negative) A 07/15/25 16:58 Urine Glucose (UA) Negative (Normal) 07/15/25 16:58 Urine Ketones 2+ (Negative) H 07/15/25 16:58 Urine Blood Negative (Negative) 07/15/25 16:58 Urine Nitrate Negative (Negative) 07/15/25 16:58 Urine Bilirubin Negative (Negative) 07/15/25 16:58 Urine Urobilinogen 2.0 mg/dL (Negative) H 07/15/25 16:58 Ur Leukocyte Esterase Trace (Negative) A 07/15/25 16:58 Urine RBC 0-2 /hpf (0-2) 07/15/25 16:58 Urine WBC 0-5 /hpf (0-5) 07/15/25 16:58 Ur Squamous Epith Cells 0-5 /hpf (0-5) 07/15/25 16:58 Calcium Oxalate Crystal 15-25 /hpf H 07/15/25 16:58 Amorphous Sediment Not Reportable 07/15/25 16:58 Urine Bacteria None seen /hpf (NONE) 07/15/25 16:58 Hyaline Casts 3.30 /lpf 07/15/25 16:58 All radiology interpretation(s) finalized by discharge Discharge Plan Discharge Patient Disposition: Home Clinical Impression: Mass of left testicle Condition: Stable Prescriptions: No Action ibuprofen 400 mg tablet 400 mg PO Q6H PRN (Reason: pain) Qty: 30 0RF Discharge Orders: Discharge ED (Routine); Ordered 07/15/25 Ordered By: Balbina Gallegos Patient Instructions: Patient Portal & Darin Instructions Activity Restrictions/Additional Instructions: As we discussed, plan still needs to be for you to follow-up with urology. I will place another case management referral for this. Blood work overall is unremarkable. UA looks like you need to drink more water. Print Language: Divehi Coding Level of Care Code ED Feed House Supervisor for Urmilag Crystal
[2025-07-15 17:27] LABS: Hematocrit 41.6 % (37-53); Hemoglobin 13.90 g/dL (11.27-16.99); Mean Corpuscular HGB Conc 33.4 g/dL (30-55); Mean Corpuscular Hemoglobin 28.3 pg (27-33); Mean Corpuscular Volume 84.7 fl (82-101); Nucleated Red Blood Cells % 0 %; Platelet Count 327 10^3/cmm (157-399); Red Blood Count 4.91 10^6/uL (3.85-5.65); White Blood Count 7.38 10^3/uL (3.29-11.43)
[2025-07-15 17:32] VITALS: BP 151/86; PULSE 72; O2SAT 97
--- OUTSIDE RECORDS SUMMARY | 2025-07-15 17:49 | XMS_ITS | Clinical Summary ---
Author Organization [facility] Address [address] [place] [address] Phone Care Team Providers [employer] Name Role Phone Unavailable Primary Care Provider Unavailabl e Encounters Date Type Department Care Team Description 06/02/2025 Abstract [facility] [place] [address] [place] [address] Provider, Abstract from Last 3 Months Social History Tobacco Use Types Packs/Day Years Used Date Smoking Tobacco: Never Assessed Sex and Gender Information Value Date Recorded Sex Assigned at Not on file Legal Sex Male 9:09 AM CDT Gender Identity Not on file Sexual Orientation Not on file Plan of Treatment Health Maintenance Due Date Last Done Comments DTAP/TDAP/TD VACCINES (6 - Tdap) 05/05/1999 05/04/1999, 05/02/1990, 01/14/1987, Additional history exists HEPATITIS B VACCINES (2 of 3 - 3-dose series) 06/01/1999 05/04/1999 HPV VACCINES (1 - 3-dose SCD M series) 12/19/2011 INFLUENZA VACCINE (#1) 2025
[2025-07-15 18:02] LABS: Alanine Aminotransferase 24 U/L (0-41); Albumin Level 4.5 g/dL (3.5-5.2); Alkaline Phosphatase 57 U/L (40-130); Anion Gap 16.7 (5-19); Aspartate Amino Transferase 28 U/L (0-40); Blood Urea Nitrogen 13 mg/dL (6-20); Calcium 8.8 mg/dL (8.5-10.5); Carbon Dioxide 24 mmol/L (22-29); Chloride 105 mmol/L (98-107); Creatinine Clr Calc Pharmacy 155.6778; Globulin 3.2 g/dL (1.3-4.6); Glucose 96 mg/dL (65-115); Osmolality Calculated 294 mOsm/kg (285-295); Potassium 3.7 mmol/L (3.5-5.1); Sodium 142 mmol/L (136-145); Total Protein 7.7 g/dL (6.6-8.7)
[2025-07-15 18:12] LABS: Glucose Urine UA Negative (Normal); Nitrate Urine Negative (Negative)
[2025-07-15 18:17] LABS: Add Urine Microscopic? YES
[2025-07-15 18:30] LABS: Specific Gravity, Urine 1.037 (1.005-1.030); UA Slide Review UA Slide Review Perf
[2025-07-15 18:51] VITALS: BP 134/85; PULSE 71; O2SAT 98
--- NOTE | 2025-07-16 07:36 | DCPLANNER ---
Sent to [facility]
== END 2025-07-15 18:52 | disposition home or self-care (01) ==
PROVIDERS: Emergency Provider Physician Assistant
DX: N50.89 Other specified disorders of the male genital organs (principal); Z72.0 Tobacco use
CPT/HCPCS: 36415; 76870; 80053; 81001; 85025; 96372; 99284; J1885